=== PATIENT | male | born 1980 | race Caucasian/White ===

== ENCOUNTER 2018-11-26 12:36 | Emergency (ER) | payer SELFPAY ==
[~2018-11-26] VITALS: Ht 172.7 cm; Wt 72.0 kg
[2018-11-26] MEDS ORDERED: MORPHINE SULFATE 4 MG/ML CPJ (NOT FOR IM USE) IV STA (12:52)
[2018-11-26] MEDS ORDERED: ONDANSETRON HCL 4MG/2ML INJ IV STA (12:52)
[2018-11-26] MEDS ORDERED: SODIUM CHLORIDE 0.9% 1,000 ML IV ONE (12:52)
[2018-11-26] MEDS ORDERED: TETANUS, DIPHTHERIA, PERTUSSIS VAC/PF 0.5ML (>7YR OLD) IM ONE (13:00)
[2018-11-26 13:12] LABS: BASOPHILS % 0.6 % (0.0-2.0); EOSINOPHILS % 0.8 % (0.0-5.0); HEMATOCRIT. 40.9 % (42.0-52.0); HEMOGLOBIN. 14.4 g/dL (14.0-18.0); LYMPHOCYTES % 16.8 % (20.0-50.0); MEAN CORPUSCULAR HEMOGLOBIN 30.8 pg (28.0-32.0); MEAN PLATELET VOLUME 7.1 fl (7.4-10.4); MONOCYTES % 7.2 % (2.0-8.0); NEUTROPHILS % 74.6 % (40.0-76.0); PLATELET 250 x1000/uL (130-400); RED BLOOD CELL COUNT 4.65 mill/uL (4.7-6.1); RED CELL DISTRIBUTION WIDTH 13.1 % (11.6-14.6)
[2018-11-26 13:16] LABS: CHLORIDE 107 mEq/L (98-107)
[2018-11-26 13:23] LABS: INR 0.9; PROTHROMBIN TIME 9.8 sec (9.6-11.0)
[2018-11-26 15:00] VITALS: BP 120/67
== END 2018-11-26 15:10 | disposition short-term general hospital (02) ==
LOC: ER 12:36
DX: T21.24XA Burn of second degree of lower back, initial encounter (principal); T20.27XA Burn of second degree of neck, initial encounter; T31.11 Burns involving 10-19% of body surface with 10-19% third degree burns; E86.0 Dehydration; F15.10 Other stimulant abuse, uncomplicated; F17.200 Nicotine dependence, unspecified, uncomplicated; X11.8XXA Contact with other hot tap-water, initial encounter; Y93.89 Activity, other specified; Y92.89 Other specified places as the place of occurrence of the external cause; Y99.8 Other external cause status
CPT/HCPCS: 36415; 80053; 85025; 85610; 90471; 90715; 96361; 96374; 96375; 99291; A4217; J2270; J2405; J7030; Z7610